=== PATIENT | female | born 1925 | race Caucasian/White ===

== ENCOUNTER → 2016-10-30 | Outpatient (CLI) | payer MEDICARE, OTHER ==
[~2016-10-30] MED LIST: ALPRAZOLAM0.5 MG PO; AMARYL 2MG TABLE2 MG PO; ASPIR 8181 MG PO; COUMADIN5 MG PO; DIGITEK125 MCG PO; FERROUS SULFAT325 M2 PO; FUROSEMIDE40 MG PO; K-TAB ER20 MEQ PO; LEVAQUIN500 MG PO; LOSARTAN-HCTZ1 EAC1 PO; METOPROLOL SUCC50 MG PO; MIRALAX17 GM PO; MULTI-DAY VITA1 EACH PO; NITROGLYCERIN8.5 GM TL; PRILOSEC OTC20 MG PO; SIMVASTATIN20 MG PO; SYMBICORT 160-1 INHA INH; XALATAN2.5 ML OP; XYZAL5 MG PO
== END ==
LOC: HEART 5 08:25
DX: R07.9 Chest pain, unspecified (principal)
CPT/HCPCS: 78452; A9502; J2785

== ENCOUNTER 2016-12-31 17:43 | Emergency (ER) | payer MEDICARE, OTHER ==
[2016-12-31 19:10] LABS: HEMOGLOBIN 10.7 gm/dl (12.3-15.3); RED BLOOD COUNT 4.01 M/UL (4.00-5.10)
[2016-12-31 19:27] LABS: BUN/CREATININE RATIO 29 (0-10)
== END 2016-12-31 22:27 | disposition home or self-care (01) ==
LOC: ER1 17:43
PROVIDERS: Emergency Medicine
DX: S09.90XA Unspecified injury of head, initial encounter (principal); M54.2 Cervicalgia; R05 Cough; R50.9 Fever, unspecified; W18.30XA Fall on same level, unspecified, initial encounter; R09.89 Other specified symptoms and signs involving the circulatory and respiratory systems
CPT/HCPCS: 36415; 70450; 71020; 72125; 80053; 85025; 85610; 85730; 87040; 99284